=== PATIENT | female | born 1975 ===

== ENCOUNTER 2018-05-04 10:03 | Inpatient (IN) | payer MEDICAID ==
--- NOTE | 2018-05-04 11:00 | ED PDOC ---
HPI: Psych/Substance Abuse Time Seen by Provider: 05/04/18 10:59 Chief Complaint (Nursing): Psychiatric Evaluation Chief Complaint (Provider): crisis eval History Per: Patient, EMS Additional Complaint(s): 42-year-old female with no past medical history presents to emergency department for crisis evaluation. Patient was seen yesterday by primary doctor and expressed thoughts of wanting to harm herself. Primary doctor instructed her to come to ED which she did not do yesterday but came today instead. He going through a divorce and has intermittent thoughts of suicide as well as homicide. She denies any alcohol or drug use and does not take any medications for depression or any other psychiatric illness. PMD: Dr. Romero Past Medical History Reviewed: Historical Data, Nursing Documentation, Vital Signs Vital Signs: Last Vital Signs Temp 96.8 F L 05/04/18 10:49 Pulse 73 05/04/18 10:49 Resp 18 05/04/18 10:49 BP 134/78 05/04/18 10:49 Pulse Ox 99 05/04/18 10:49 - Medical History PMH: No Chronic Diseases - Surgical History Surgical History: Appendectomy, (x 1) Other surgeries: breast augmentation, wisdom tooth extraction - Family History Family History: States: No Known Family Hx - Living Arrangements Living Arrangements: With Family - Social History Current smoker - smoking cessation education provided: No Alcohol: None Drugs: Denies - Allergies Allergies/Adverse Reactions: Allergies Allergy/AdvReac Type Severity Reaction Status Date / Time iodine Allergy RASH Verified 05/04/18 10:49 latex Allergy RASH Verified 05/04/18 10:49 Review of Systems ROS Statement: Except As Marked, All Systems Reviewed And Found Negative Psych: Positive for: Other (Suicidal and homicidal ideation, denies auditory or visual hallucinations) Physical Exam - Reviewed Nursing Documentation Reviewed: Yes Vital Signs Reviewed: Yes - Physical Exam Appears: Positive for: Well, Non-toxic, No Acute Distress Skin: Positive for: Normal Color. Negative for: Rash Eye Exam: Positive for: Normal appearance Cardiovascular/Chest: Positive for: Regular Rate, Rhythm Respiratory: Positive for: Normal Breath Sounds Gastrointestinal/Abdominal: Positive for: Soft. Negative for: Tenderness, Distended, Guarding, Rebound Extremity: Positive for: Normal ROM Neurologic/Psych: Positive for: Alert, Oriented - Laboratory Results Result Diagrams: 05/04/18 12:52 05/04/18 12:52 - ECG Interpretation Of ECG: Normal sinus rhythm 80 bpm, no acute changes, reviewed by PA and ED attending. O2 Sat by Pulse Oximetry: 99 Pulse Ox Interpretation: Normal Medical Decision Making Medical Decision Makin-year-old female here for crisis evaluation. Plan: 1:1 observation Crisis evaluation As per crisis counselor and psychiatrist on-call, Dr. Kam, patient does meet criteria for admission and agrees to sign in. Patient is medically stable for psychiatric admission. Disposition - Clinical Impression Clinical Impression: Depression - Patient ED Disposition Is Patient to be Admitted: Yes - Disposition Disposition Time: 14:26 Condition: FAIR Forms: [employer] (Fijian) - Pt Status Changed To: Hospital Disposition Of: Inpatient - Admit Certification Admit to Inpatient:: After my assessment, the patient will require hospitalization for at least two midnights. This is because of the severity of symptoms shown, intensity of services needed, and/or the medical risk in this patient being treated as an outpatient. - POA Present On Arrival: None Results - Lab Results Lab Results: 05/04/18 05/04/18 05/04/18 13:20 13:20 12:52 WBC 10.1 RBC 4.77 Hgb 14.1 Hct 42.7 MCV 89.5 MCH 29.6 MCHC 33.0 RDW 14.4 Plt Count 304 MPV 9.1 Neut % (Auto) 72.9 Lymph % (Auto) 20.7 Jackson % (Auto) 5.2 Eos % (Auto) 0.8 Baso % (Auto) 0.4 Neut # (Auto) 7.4 H Lymph # (Auto) 2.1 Jackson # (Auto) 0.5 Eos # (Auto) 0.1 Baso # (Auto) 0.0 Sodium Potassium Chloride Carbon Dioxide Anion Gap BUN Creatinine Est GFR ( Amer) Est GFR (Non-Af Amer) Random Glucose Calcium Total Bilirubin AST ALT Alkaline Phosphatase Total Protein Albumin Globulin Albumin/Globulin Ratio Urine Color Yellow Urine Clarity Slighty-cloudy Urine pH 6.0 Ur Specific [place] 1.020 Urine Protein Negative Urine Glucose (UA) Neg Urine Ketones 20 Urine Blood Negative Urine Nitrate Negative Urine Bilirubin Negative Urine Urobilinogen 2.0 H Ur Leukocyte Esterase Neg Urine RBC (Auto) 3 Urine Microscopic WBC 3 Ur Squamous Epith Cells 3 Urine Bacteria Rare Urine Opiates Screen Negative Urine Methadone Screen Negative Ur Barbiturates Screen Negative Ur Phencyclidine Scrn Negative Ur Amphetamines Screen Negative U Benzodiazepines Scrn Negative U Oth Cocaine Metabols Negative U Cannabinoids Screen Negative Alcohol, Quantitative 05/04/18 12:52 WBC RBC Hgb Hct MCV MCH MCHC RDW Plt Count MPV Neut % (Auto) Lymph % (Auto) Jackson % (Auto) Eos % (Auto) Baso % (Auto) Neut # (Auto) Lymph # (Auto) Jackson # (Auto) Eos # (Auto) Baso # (Auto) Sodium 141 Potassium 3.7 Chloride 100 Carbon Dioxide 28 Anion Gap 17 BUN 11 Creatinine 0.6 L Est GFR ( Amer) > 60 Est GFR (Non-Af Amer) > 60 Random Glucose 103 Calcium 9.1 Total Bilirubin 1.2 AST 16 ALT 23 Alkaline Phosphatase 69 Total Protein 7.8 Albumin 4.3 Globulin 3.4 Albumin/Globulin Ratio 1.3 Urine Color Urine Clarity Urine pH Ur Specific [place] Urine Protein Urine Glucose (UA) Urine Ketones Urine Blood Urine Nitrate Urine Bilirubin Urine Urobilinogen Ur Leukocyte Esterase Urine RBC (Auto) Urine Microscopic WBC Ur Squamous Epith Cells Urine Bacteria Urine Opiates Screen Urine Methadone Screen Ur Barbiturates Screen Ur Phencyclidine Scrn Ur Amphetamines Screen U Benzodiazepines Scrn U Oth Cocaine Metabols U Cannabinoids Screen Alcohol, Quantitative < 10
[2018-05-04 13:11] LABS: BASO % 0.4 % (0.0-2.0); EOS # 0.1 K/uL (0.0-0.7); EOS % 0.8 % (0.0-4.0); HEMOGLOBIN 14.1 g/dL (12.0-16.0); LYMPH # 2.1 K/uL (1.0-4.3); LYMPH % 20.7 % (20.0-40.0); MEAN CELL VOLUME 89.5 fl (81.0-99.0); MEAN CORPUSCULAR HEMOGLOBIN 29.6 pg (27.0-31.0); MEAN PLATELET VOLUME 9.1 fl (7.2-11.7); MONO # 0.5 K/uL (0.0-0.8); MONO % 5.2 % (0.0-10.0); NEUT # 7.4 K/uL (1.8-7.0); NEUT % 72.9 % (50.0-75.0); RBC 4.77 Mil/uL (3.80-5.20); RED CELL DISTRIBUTION WIDTH 14.4 % (11.5-14.5); WHITE BLOOD COUNT 10.1 K/uL (4.8-10.8)
[2018-05-04 13:21] LABS: ALB/GLOB RATIO 1.3 (1.0-2.1); ALBUMIN 4.3 g/dL (3.5-5.0); ALT/SGPT 23 U/L (9-52); AST/SGOT 16 U/L (14-36); BLOOD UREA NITROGEN 11 mg/dl (7-17); CALCIUM 9.1 mg/dL (8.4-10.2); GFR AFRICAN-AMERICAN > 60; GFR NON-AFRICAN AMERICAN > 60
[2018-05-04 13:48] LABS: BARBITURATES, UR NEGATIVE (NEGATIVE); BENZODIAZEPINES, UR NEGATIVE (NEGATIVE); OPIATES, UR NEGATIVE (NEGATIVE); PHENCYCLIDINE, UR NEGATIVE (NEGATIVE)
[2018-05-04 13:59] LABS: SQUAMOUS EPITHIAL 3 /hpf (0-5); URINE BACTERIA RARE (<OCC); URINE BILIRUBIN NEGATIVE (NEGATIVE); URINE BLOOD NEGATIVE (NEGATIVE); URINE CLARITY SLIGHTY-CLOUDY (Clear); URINE COLOR YELLOW (YELLOW); URINE GLUCOSE (UA) NEG (Normal); URINE LEUKOCYTE ESTERASE NEG Leu/uL (Negative); URINE PROTEIN NEGATIVE (NEGATIVE)
--- NOTE | 2018-05-04 14:10 | CARD ---
APPROVED REPORT EKG Measurement Heart [id number] <Conclusion> Normal sinus rhythm Normal ECG
[2018-05-04 14:50] VITALS: O2SAT 98
--- NOTE | 2018-05-04 14:59 | RAD ---
HISTORY: clearance COMPARISON: No prior. FINDINGS: LUNGS: No active pulmonary disease. PLEURA: No significant pleural effusion identified, no pneumothorax apparent. CARDIOVASCULAR: Normal. OSSEOUS STRUCTURES: No significant abnormalities. VISUALIZED UPPER ABDOMEN: Normal. OTHER FINDINGS: Questionable bilateral breast implants. IMPRESSION: No active disease.
[2018-05-04] MEDS ORDERED: DiphenhydrAMINE 50 mg/ml Inj IM PRN (15:50)
[2018-05-04] MEDS ORDERED: Magnesium Hydroxide Susp 30 ml UD PO PRN (15:50)
--- NOTE | 2018-05-04 17:43 | PCM.BM ---
<Lavon He - Last Filed: 05/04/18 17:40> Treatment Plan Problems - Problems identified on initial assessmt Hopelessnee/helplessness Date Initiated: 05/04/18 Time Initiated: 15:30 Assessment reference: NA Status: Active Treatment assets and liabiliti Patient Assests: cooperative, self-reliant, ADL independent, physically healthy , cognitively intact Patient Liabilities: financial problems, poor support system, relationship conflicts <Rosemarie Moody - Last Filed: 05/09/18 15:16> Treatment assets and liabiliti Patient Assests: adapts well, cooperative, educated, insightful, motivated, resourceful, self-reliant, ADL independent, physically healthy, negotiates basic needs, good past tx response, cognitively intact, good interpersonal skills Patient Liabilities: live alone (unstable housing) Family Contact Family involvement: Family/SO is involved Family contact: Patient agrees to contact, Family has been contacted by patient , Telephone contact initiated by staff Family contact name: Nely- [phone] Family contacted how many times per week?: 2 Family contact comment: [employer] Cl[employer] Reclaimer placed call to pts (Vincenzo [phone] ) to discuss pts progress on 3NP, upcoming discharge and aftercare. [employer] Cl[employer] Reclaimer inquired about pts son. Pts confirmed that their son is in his care. [employer] Cl[employer] Reclaimer provided additional psychoeducation regarding nature of tx provided on 3NP and in the community and provided clinical updates regarding pts progress. [employer] Cl[employer] Reclaimer emphasized importance of compliance with medication management/aftercare to ensure safety and functioning in the community and reduce risk of future hospitalizations. Pts expressed understanding of the above and being supportive of pts ongoing tx upon discharge, stating Our son is in the middle so I will help is anyway that I can. Pts confirmed pts plan to temporarily stay with friends upon discharge and to continue co-parenting with . [employer] Cl[employer] Reclaimer to contact Vincenzo on 05/10 with anticipated discharge date. - Goals for Treatment Patient goals for treatment: Patient to continue stabilization on 3NP through medication management and group/supportive therapy. Patient to be encouraged to attend groups regularly to promote self-awareness, anger management, and improve insight, compliance, coping skills and self-esteem. Patient to be provided with referral for appropriate level of aftercare to reduce risk of future hospitalizations and ensure safety in the community. Discharge/Continuing Care - Education Needs Education Needs: Family Medication, Family Coping Skills, Family Anger Management skills, Family Community resources, Family Aftercare Safety Plan, Patient Medication, Patient Coping Skills, Patient Anger Management skills, Patient Community resources, Patient Aftercare Safety Plan - Discharge Discharge Criteria: Tolerates medication w/o severe side effects, Free of agitation, Normal sleep pattern, Ability to care for self, Reduction of target symptoms Discharge to:: Other (pt. reports plan to temporarily stay with friends until pt can secure housing) - Treatment Team Participation Patient/Family/SO Statement: 05/09/18 15:17 [employer] Cl[employer] Reclaimer attended tx team on 05/07 to discuss precursors to hospitalization, progress on 3NP and aftercare. Pt. expressed improvement in sxs of depression since admission but continued to report sxs of anxiety, stating I feel like a lost child. Pt able to explore how past trauma and abandonment influences pts response to rejection, stating I get angry and defensive because I always felt like I had to protect myself. Insight/judgment fair. Coping skills impaired. Pt. was able to actively engage in discussion regarding tx goals and importance of adherence with aftercare to process hx of trauma, improve coping skills, impulse control and promote self-esteem and boundary setting. Pt. appropriately tearful through-out tx team. Pt. expressed feeling more comfortable being discharged after the weekend as to ensure proper medication management and improvement in sxs of anxiety. Pt. reported plan to stay with friends upon discharge until pt is able to ensure stable housing for her and her son. Discussed with Family/SO: Yes Was Patient/Family/SO present at Treatment Team Meeting: Yes <Husam Kam - Last Filed: 05/10/18 11:12> - Diagnosis (1) Depression Status: Acute Interventions: psychotherapy pharmacotherapy 05/10/18 11:12
--- NOTE | 2018-05-05 08:55 | CP.PCM.CON ---
History of Present Illness - History of Present Illness History of Present Illness: Medicine Consult note for Dr. Cruz 42 yo female with pmhx of depression admitted to psychiatry unit yesterday for depression with suicidal ideation. Medicine was consulted as per protocol and pt 's medical management. Patient reports she has been having loose BM 2X/day for about a month. States she returned from [facility] on 04/25/18 and was there for 2 months. States symptoms of acute gastroenteritis started 4 weeks ago while in [facility]. Most of her symptoms resolved except for loose stool and intermittent left sided abdominal pain which resolves with BMs. Patient's son has similar symptoms. Denies any recent abx use. Denies blood in stool. Denies nausea, vomiting, fever, chills, dysuria, vaginal discharge or flank pain. Denies SI/HI this morning. LMP: 1 week ago. PMD:Dr. Romero Psychiatric hx: depression Pmhx: diarrhea pshx: appendectomy at age 16, in 2013, B/L breast augmentation in 2014 , tooth extraction 18 yrs ago. Medications: none Social hx: Denies smoking cigarettes, drinking EtOH or using drugs Family hx: Father: HTN, CAD, in his 50's, Brother: DMII. Allergies: iodine, latex, nuts Review of Systems - Constitutional Constitutional: absent: Chills, Fever, Malaise - EENT Eyes: absent: Blurred Vision, Change in Vision Nose/Mouth/Throat: absent: Nasal Congestion, Nasal Discharge, Sore Throat - Cardiovascular Cardiovascular: absent: Chest Pain, Chest Pain at Rest, Dyspnea - Respiratory Respiratory: absent: Cough, Dyspnea - Gastrointestinal Gastrointestinal: Cramping (intermittent, left sided), Loose Stools. absent: Hematemesis, Hematochezia, Melena, Nausea, Vomiting - Genitourinary Genitourinary: absent: Dysuria, Hematuria - Musculoskeletal Musculoskeletal: absent: Back Pain, Neck Pain, Tingling - Integumentary Integumentary: absent: Rash - Neurological Neurological: absent: Numbness, Headaches Past Patient History - Past Social History Alcohol: None Drugs: Denies - CARDIAC Hx Cardiac Disorders: No - PULMONARY Hx Respiratory Disorders: No Hx Tuberculosis: No - NEUROLOGICAL Hx Neurological Disorder: No HX Cerebrovascular Accident: No Hx Seizures: No - HEENT Hx HEENT Problems: No - RENAL Hx Chronic Kidney Disease: No - ENDOCRINE/METABOLIC Hx Endocrine Disorders: No - HEMATOLOGICAL/ONCOLOGICAL Hx Blood Disorders: No Hx Cancer: No Hx Human Immunodeficiency Virus (HIV): No - INTEGUMENTARY Hx Dermatological Problems: No - MUSCULOSKELETAL/RHEUMATOLOGICAL Hx Musculoskeletal Disorders: No - GASTROINTESTINAL Hx Gastrointestinal Disorders: No - GENITOURINARY/GYNECOLOGICAL Hx Genitourinary Disorders: No Hx Sexually Transmitted Disorders: No - PSYCHIATRIC Hx Substance Use: No - SURGICAL HISTORY Hx Surgeries: No Hx Appendectomy: Yes Other/Comment: breast aumentation as per er report - ANESTHESIA Hx Anesthesia: No Meds Allergies/Adverse Reactions: Allergies Allergy/AdvReac Type Severity Reaction Status Date / Time iodine Allergy RASH Verified 05/04/18 10:49 latex Allergy RASH Verified 05/04/18 10:49 nuts Allergy RASH Uncoded 05/04/18 23:51 - Medications Medications: Current Medications Acetaminophen (Tylenol 325mg Tab) 650 mg PO Q4 PRN PRN Reason: Pain, moderate (4-7) Diphenhydramine HCl (Benadryl) 50 mg IM Q6 PRN PRN Reason: Extrapyramidal S/S Unable PO Diphenhydramine HCl (Benadryl) 50 mg PO Q6 PRN PRN Reason: Extrapyramidal Symptoms Escitalopram Oxalate (Lexapro) 5 mg PO HS [facility] Last Admin: 05/04/18 21:16 Dose: 5 mg Haloperidol (Haldol) 5 mg PO Q4 PRN PRN Reason: Agitation Haloperidol Lactate (Haldol) 5 mg IM Q4 PRN PRN Reason: Agitation, Unable to Take PO Lorazepam (Ativan) 2 mg IM Q4 PRN PRN Reason: Anxiety/Agitation,Unable PO Lorazepam (Ativan) 1 mg PO TID PRN PRN Reason: Anxiety Magnesium Hydroxide (Milk Of Magnesia) 30 ml PO HS PRN PRN Reason: Constipation Trazodone HCl (Desyrel) 50 mg PO HS [facility] Last Admin: 05/04/18 21:16 Dose: 50 mg Physical Exam - Constitutional Appears: Non-toxic, No Acute Distress - Head Exam Head Exam: NORMAL INSPECTION, NORMOCEPHALIC - Eye Exam Eye Exam: EOMI, Normal appearance - ENT Exam ENT Exam: Mucous Membranes Moist, Normal Oropharynx - Neck Exam Neck exam: Positive for: Full Rom, Normal Inspection - Respiratory Exam Respiratory Exam: Clear to Auscultation Bilateral, NORMAL BREATHING PATTERN. absent: Rales, Rhonchi, Wheezes - Cardiovascular Exam Cardiovascular Exam: REGULAR RHYTHM, RRR, +S1, +S2 - GI/Abdominal Exam GI & Abdominal Exam: Normal Bowel Sounds, Soft. absent: Distended, Guarding, Rebound, Rigid, Tenderness - Extremities Exam Extremities exam: Positive for: normal inspection, pedal pulses present. Negative for: calf tenderness - Back Exam Back exam: absent: CVA tenderness (L), CVA tenderness (R) - Neurological Exam Neurological exam: Alert, Oriented x3 - Psychiatric Exam Psychiatric exam: Depressed - Skin Skin Exam: Normal Color, Warm Results - Vital Signs Recent Vital Signs: Last Vital Signs Temp 97.9 F 05/04/18 16:53 Pulse 79 05/04/18 16:53 Resp 18 05/04/18 18:22 BP 123/80 05/04/18 16:53 Pulse Ox 98 05/04/18 14:49 - Labs Result Diagrams: 05/04/18 12:52 05/04/18 12:52 Labs: Laboratory Results - last 24 hr 05/04/18 05/04/18 05/04/18 12:52 12:52 13:20 WBC 10.1 RBC 4.77 Hgb 14.1 Hct 42.7 MCV 89.5 MCH 29.6 MCHC 33.0 RDW 14.4 Plt Count 304 MPV 9.1 Neut % (Auto) 72.9 Lymph % (Auto) 20.7 Bow[place] % (Auto) 5.2 Eos % (Auto) 0.8 Baso % (Auto) 0.4 Neut # (Auto) 7.4 H Lymph # (Auto) 2.1 Bowman # (Auto) 0.5 Eos # (Auto) 0.1 Baso # (Auto) 0.0 Sodium 141 Potassium 3.7 Chloride 100 Carbon Dioxide 28 Anion Gap 17 BUN 11 Creatinine 0.6 L Est GFR ( Amer) > 60 Est GFR (Non-Af Amer) > 60 Random Glucose 103 Hemoglobin A1c Calcium 9.1 Total Bilirubin 1.2 AST 16 ALT 23 Alkaline Phosphatase 69 Total Protein 7.8 Albumin 4.3 Globulin 3.4 Albumin/Globulin Ratio 1.3 Triglycerides Cholesterol LDL Cholesterol Direct HDL Cholesterol TSH 3rd Generation Urine Color Yellow Urine Clarity Slighty-cloudy Urine pH 6.0 Ur Specific [place] 1.020 Urine Protein Negative Urine Glucose (UA) Neg Urine Ketones 20 Urine Blood Negative Urine Nitrate Negative Urine Bilirubin Negative Urine Urobilinogen 2.0 H Ur Leukocyte Esterase Neg Urine RBC (Auto) 3 Urine Microscopic WBC 3 Ur Squamous Epith Cells 3 Urine Bacteria Rare Urine Opiates Screen Urine Methadone Screen Ur Barbiturates Screen Ur Phencyclidine Scrn Ur Amphetamines Screen U Benzodiazepines Scrn U Oth Cocaine Metabols U Cannabinoids Screen Alcohol, Quantitative < 10 05/04/18 05/04/18 05/05/18 13:20 16:50 05:55 WBC RBC Hgb Hct MCV MCH MCHC RDW Plt Count MPV Neut % (Auto) Lymph % (Auto) [place] % (Auto) Eos % (Auto) Baso % (Auto) Neut # (Auto) Lymph # (Auto) [place] # (Auto) Eos # (Auto) Baso # (Auto) Sodium Potassium Chloride Carbon Dioxide Anion Gap BUN Creatinine Est GFR ( Amer) Est GFR (Non-Af Amer) Random Glucose Hemoglobin A1c 5.8 Calcium Total Bilirubin AST ALT Alkaline Phosphatase Total Protein Albumin Globulin Albumin/Globulin Ratio Triglycerides 100 Cholesterol 137 LDL Cholesterol Direct 60 HDL Cholesterol 43 TSH 3rd Generation 0.61 Urine Color Urine Clarity Urine pH Ur Specific [place] Urine Protein Urine Glucose (UA) Urine Ketones Urine Blood Urine Nitrate Urine Bilirubin Urine Urobilinogen Ur Leukocyte Esterase Urine RBC (Auto) Urine Microscopic WBC Ur Squamous Epith Cells Urine Bacteria Urine Opiates Screen Negative Urine Methadone Screen Negative Ur Barbiturates Screen Negative Ur Phencyclidine Scrn Negative Ur Amphetamines Screen Negative U Benzodiazepines Scrn Negative U Oth Cocaine Metabols Negative U Cannabinoids Screen Negative Alcohol, Quantitative Assessment & Plan - Assessment and Plan (Free Text) Assessment: Assessment: 42 year old female with pmhx of depression admitted to psychiatry unit for depression with SI. Patient returned from [facility] on 04/25/18 and reports loose stool 2x/day for 1 month. Plan: 1. Major depressive disorder with suicidal ideation -Manage as per psychiatry team 2. Loose stool -Recent trip to [facility] -r/o traveler's diarrhea vs infectious/parasite infection -Stable VS, CBC wnl -f/u stool cx, ova and parasite -Start Imodium 2 mg po bid Case d/w on-call Hospitalist Dr. Anthony Smith, pgy-1
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
--- NOTE | 2018-05-06 15:02 | PCM.PYCHPN ---
Psychiatric Progress Note - Psychiatric Progress Note Patient seen today, length of contact: PT EVALUATED DISCUSSED WITH TEAM CHART REVIEWED Patient Chief Complaint: I SLEPT BETTER Problems Identified/Issues Discussed: pt evaluated , reported improvedsleep last night feeling less anxious, continues to be deprssed and tearful when talking about the break up with her also feeling worried about her son, CBT provided , discussed with pt possible referral to [facility] outpatient to help with housing pt denied side effects of lexapro , will increase dose gradually denied any current active suicidal ideation, encouraged to attend groups Medical Problems: one hospitalization for depression ten years ago, non compliant with treatment DSM 5 Symptoms Update: major depression Medication Change: Yes (increase lexapro gradually) Medical Record Reviewed: Yes Mental Status Examination - Cognitive Function Orientation: Person, Place Memory: Intact Attention: WNL Concentration: WNL Association: WNL Fund of Knowledge: WN Decription of patient's judgement and insights: fair insight and judgment - Mood Mood: Depressed, Anxious - Affect Affect: Constricted, Depressed - Speech Speech: Soft - Formal Thought Process Formal Thought Process: Circumstantial Psychotic Thoughts and Behaviors: denied psychotic symptoms , non elicited - Suicidal Ideation Suicidal Ideation: No - Homicidal Ideation Homicidal Ideation: No Goal/Treatment Plan - Goal/Treatment Plan Need for Continued Stay: Severe depression anxiety, Discharge may exacerbated symptoms Progress Toward Problem(s) and Goals/Treatment Plan: increase lexapro 10mg increase gradualy trazodone 50mg qhs CBT group and supportive therapy
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
[2018-05-10 09:08] VITALS: BP 119/74; PULSE 91; RESP 20; TEMP 98.1
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
== END 2018-05-10 16:45 | disposition home or self-care (01) | DRG 430 ==
LOC: H.ER 10:03 → H.ERHOLD 14:21 → H.PSYCH 15:02
PROVIDERS: ADMIT Psychiatry & Neurology Psychiatry; ATTEND Psychiatry & Neurology Psychiatry
PROC: GZ3ZZZZ Medication Management (ICD-10-PCS; principal; 2018-05-04)
PROC: GZHZZZZ Group Psychotherapy (ICD-10-PCS; 2018-05-04)
PROC: GZ56ZZZ Individual Psychotherapy, Supportive (ICD-10-PCS; 2018-05-04)
DX: F33.2 Major depressive disorder, recurrent severe without psychotic features (principal); R45.851 Suicidal ideations; G47.00 Insomnia, unspecified; F43.10 Post-traumatic stress disorder, unspecified; Z91.19 Patient's noncompliance with other medical treatment and regimen; Z90.49 Acquired absence of other specified parts of digestive tract; Z83.3 Family history of diabetes mellitus; Z82.49 Family history of ischemic heart disease and other diseases of the circulatory system